=== PATIENT | female | born 1945 | race Caucasian/White ===

== ENCOUNTER 2016-12-26 07:37 | Outpatient (CLI) | payer MEDICARE ==
[2016-12-26 08:22] LABS: ALT (SGPT) 19 U/L (8-55); AST (SGOT) 25 U/L (5-34); Albumin 3.8 g/dL (3.4-4.8); Alkaline Phosphatase 74 U/L (40-150); Anion Gap 12 mmol/L (10-20); BUN (Urea Nitrogen) 17 mg/dL (9.8-20.1); Bilirubin, Direct 0.3 mg/dL (0.1-0.3); Bilirubin, Total 0.7 mg/dL (0.2-1.2); Calc. Creatinine Clearance 0 mL/min (70-130); Calcium 9.3 mg/dL (7.8-10.44); Carbon Dioxide 26 mmol/L (23-31); Cardiac Risk 2.2 (Less than 4.5); Chloride 106 mmol/L (98-107); Cholesterol 165 mg/dl (< 200 Desired); Estimated GFR-MDRD 67; Glucose 98 mg/dL (80-115); HDL Cholesterol 75 mg/dL (>60 Neg Risk); LDL Cholesterol, Calculated 74 mg/dL; Potassium 4.3 mmol/L (3.5-5.1); Protein, Total 6.7 g/dL (6.0-8.3); Sodium 140 mmol/L (136-145); Triglycerides 82 mg/dL (Less than 150)
[2016-12-26 08:52] LABS: #Basophils 0.1 thou/uL (0.0-0.2); #Eosinphils 0.2 thou/uL (0.0-0.7); #Lymphocytes 1.9 thou/uL (1.20-3.40); #Monocytes 0.5 thou/uL (0.11-0.59); #Neutrophils 1.8 thou/uL (1.40-6.50); %Basophils 2.3 % (0.0-1.0); %Eosinophils 5.4 % (0.0-10.0); %Lymphocytes 41.6 % (21.0-51.0); %Monocytes 11.1 % (0.0-10.0); %Neutrophils 39.6 % (42.0-75.0); Hemoglobin 12.5 g/dL (12.0-16.0); Mean Corpuscular HGB CONC 32.5 g/dL (32.0-36.0); Mean Corpuscular Hemoglobin 31.6 pg (27.0-31.0); Mean Corpuscular Volume 97.1 fl (81.0-99.0); Mean Platelet Volume 6.8 fL (7.4-10.4); Platelet Count 256 thou/uL (130-400); RBC Distribution Width 11.6 % (11.5-14.5); Red Blood Cell (RBC) Count 3.97 mill/uL (4.20-5.40); White Blood Cell (WBC) Count 4.5 thou/uL (4.8-10.8)
== END 2016-12-26 07:38 | disposition home or self-care (01) ==
LOC: MADLABBHPM 07:37
PROVIDERS: ATTEND Family Medicine
DX: I10 Essential (primary) hypertension (principal); M17.9 Osteoarthritis of knee, unspecified
CPT/HCPCS: 36415; 80048; 80061; 80076; 84443; 85025

== ENCOUNTER 2019-01-31 16:18 | Inpatient (IN) | payer MEDICARE ==
[2019-01-31 19:56] VITALS: BMI 31.5
[2019-01-31] MEDS ORDERED: Ferrous Gluconate 324 MG TAB PO SCH (21:00)
[2019-01-31] MEDS ORDERED: Guaifenesin DM 100-10/5 ML UDCUP PO PRN (21:06)
[2019-01-31] MEDS ORDERED: HYDROcodone/Acetaminophen 5/325 mg Tablet PO PRN (21:07)
[2019-01-31] MEDS: Aspirin 81 mg Enteric Coated Tablet PO SCH (21:25)
[2019-01-31] MEDS: Loratadine 10 MG TAB PO SCH (21:25)
[2019-01-31] MEDS: Floranex Packet PO SCH (21:25)
[2019-01-31] MEDS: Simvastatin 20 MG TAB PO SCH (21:25)
[2019-01-31] MEDS: HYDROcodone/Acetaminophen 5/325 mg Tablet PO PRN (21:26)
[2019-02-01 05:27] LABS: Eosinophils 7 % (0-10); Hemoglobin 10.9 g/dL (12.0-16.0); Lymphocytes 14 % (21-51); MDiff Complete? YES; Mean Corpuscular HGB CONC 33.6 g/dL (32.0-36.0); Mean Corpuscular Hemoglobin 31.4 pg (27.0-31.0); Mean Corpuscular Volume 93.5 fL (78.0-98.0); Mean Platelet Volume 5.3 fL (7.4-10.4); Monocytes 7 % (0-10); Neutrophil 70 % (42-75); Platelet Count 292 thou/uL (130-400); Platelet Morphology Comment Appears Adequate; RBC Distribution Width 12.4 % (11.5-14.5); RBC Morphology Normal; Reactive Lymphocytes 2 % (0-10); Red Blood Cell (RBC) Count 3.45 mill/uL (4.20-5.40); White Blood Cell (WBC) Count 9.6 thou/uL (4.8-10.8)
[2019-02-01 05:29] LABS: Potassium 5.1 mmol/L (3.5-5.1); Sodium 137 mmol/L (136-145)
[2019-02-01 05:30] LABS: Anion Gap 12 mmol/L (10-20); BUN (Urea Nitrogen) 18 mg/dL (9.8-20.1); Calc. Creatinine Clearance 93 mL/min (70-130); Calcium 8.9 mg/dL (7.8-10.44); Carbon Dioxide 27 mmol/L (23-31); Chloride 103 mmol/L (98-107); Estimated GFR-MDRD 72; Glucose 103 mg/dL (83-110)
[2019-02-01] MEDS: Multivitamin W/ Minerals 1 TAB PO SCH (08:09)
[2019-02-01] MEDS: HYDROcodone/Acetaminophen 5/325 mg Tablet PO PRN ×3 (08:09→21:17)
[2019-02-01] MEDS: Ferrous Gluconate 324 MG TAB PO SCH ×2 (08:10→17:01)
[2019-02-01] MEDS: Famotidine 20 MG TAB PO SCH (08:10)
[2019-02-01] MEDS: Ubidecarenone 50 MG CAP PO SCH (08:10)
[2019-02-01] MEDS: Aspirin 81 mg Enteric Coated Tablet PO SCH ×2 (08:10→21:17)
[2019-02-01] MEDS: Oxybutynin 5 MG TAB PO SCH (08:10)
[2019-02-01] MEDS ORDERED: Acetaminophen 325 MG TAB PO PRN (10:39)
[2019-02-01] MEDS: Nystatin 500,000 UNITS/5 ML UDCUP PO SCH ×3 (13:56→21:17)
[2019-02-01] MEDS ORDERED: Fluconazole 100 MG TAB PO SCH (14:00)
[2019-02-01] MEDS: Floranex Packet PO SCH (21:17)
[2019-02-01] MEDS: Loratadine 10 MG TAB PO SCH (21:17)
[2019-02-01] MEDS: Simvastatin 20 MG TAB PO SCH (21:17)
[2019-02-02] MEDS: HYDROcodone/Acetaminophen 5/325 mg Tablet PO PRN ×5 (04:21→23:10)
[2019-02-02] MEDS: Famotidine 20 MG TAB PO SCH (08:44)
[2019-02-02] MEDS: Lisinopril 10 MG TAB PO SCH (08:44)
[2019-02-02] MEDS: Ubidecarenone 50 MG CAP PO SCH (08:44)
[2019-02-02] MEDS: Multivitamin W/ Minerals 1 TAB PO SCH (08:48)
[2019-02-02] MEDS: Oxybutynin 5 MG TAB PO SCH (08:48)
[2019-02-02] MEDS: Ferrous Gluconate 324 MG TAB PO SCH ×2 (08:48→17:00)
[2019-02-02] MEDS: Aspirin 81 mg Enteric Coated Tablet PO SCH ×2 (08:48→20:41)
[2019-02-02] MEDS: Fluconazole 100 MG TAB PO SCH (08:49)
[2019-02-02] MEDS: Nystatin 500,000 UNITS/5 ML UDCUP PO SCH ×4 (08:49→20:41)
[2019-02-02] MEDS ORDERED: Bisacodyl 10 MG SUPP PR PRN (09:16)
[2019-02-02] MEDS ORDERED: Enoxaparin Sodium 40 MG/0.4 ML SYRINGE SC SCH (09:30)
[2019-02-02] MEDS ORDERED: Polyethylene Glycol 3350 17 GM Packet PO SCH (09:30)
[2019-02-02] MEDS: Polyethylene Glycol 3350 17 GM Packet PO SCH (09:33)
[2019-02-02] MEDS: Floranex Packet PO SCH (20:41)
[2019-02-02] MEDS: Simvastatin 20 MG TAB PO SCH (20:41)
[2019-02-02] MEDS: Loratadine 10 MG TAB PO SCH (20:41)
[2019-02-03] MEDS: HYDROcodone/Acetaminophen 5/325 mg Tablet PO PRN ×3 (07:16→22:11)
--- NOTE | 2019-02-03 07:24 | HP ---
CHIEF COMPLAINT: Weakness following right hip replacements. HISTORY OF PRESENT ILLNESS: The patient is a 74-year-old white female, who has a history of hypertension, gastroesophageal reflux disease, hypercholesterolemia, diverticulosis. The patient has very severe arthritis of the right hip that was symptomatic. She was hospitalized at [facility] from 01/28/2019 to 01/31/2019 for the end-stage bicompartmental osteoarthritis of the right hip. She underwent a right total hip arthroplasty. She also was found to have a spontaneous rupture of the abductor muscle, which was repaired. This was all done on 01/28/2019. Her postop course was unremarkable, but she was weak and was having difficulty with any transfers, and consequently, was transferred to [facility] for continued physical therapy. The patient was seen early on the morning of 02/01/2019. She said that she was doing all right. Her pain was well managed. Most pain came with movement and ambulation was better. She is having a lot of trouble with transfers. When she is on her feet, she does pretty well. She was here for physical therapy. PAST MEDICAL HISTORY: Hospitalized at [facility] 01/28/2019 to [id number] for severe osteoarthritis of the right hip end-stage and spontaneous rupture of the right abductor muscle for which she underwent a right total hip arthroplasty and repair of the abductor muscle by Dr. Que Andrade on 01/28/2019. Postop course unremarkable. The patient has hypertension, gastroesophageal reflux disease, hypercholesterolemia, diverticulosis, urge and stress incontinence; liver abscess in 2007, treated with 6 weeks of IV antibiotics and then 2 months of oral antibiotics with complete resolution; osteoarthritis, irritable bowel syndrome. The patient has had a cholecystectomy in 1999, colonoscopy and EGD with findings of a hiatal hernia. Colonoscopy showed evidence of diverticulosis. This was in October of 2013. Hiatal hernia repair in March 2014. Benign mass removed from the left breast in 1999. The patient had a colonoscopy in 2003, which showed diverticulosis again in April [address] Munguia. PRESENT MEDICATIONS: 1. Zyrtec 10 mg at bedtime. 2. Aspirin 81 mg daily. 3. CoQ10 100 mg b.i.d. 4. Zantac 150 mg daily. 5. Lisinopril 10 mg daily, which is being held due to decrease in her blood pressure. 6. Hydrocodone-acetaminophen 5/325 one or two every 4 hours as needed for pain. 7. Ibuprofen 600 mg every 6 hours as needed for pain. 8. Theragran-M one tablet daily. 9. Loratadine 10 mg at bedtime. 10. Oxybutynin 5 mg daily. 11. Simvastatin 20 mg at bedtime. ALLERGIES: BACTRIM, NEXIUM. REVIEW OF SYSTEMS: GENERAL: The patient said she has not had any fever. She does not think her weight is changed. HEAD AND NECK: The patient said she yesterday spit up just a little blood, but none today. She has also had a little nasal congestion, a little greenish drainage, but her chest has been clear. 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 PULMONARY: The patient denies any shortness of breath. CARDIOVASCULAR: No chest pain. GI: No nausea or vomiting. Her bowels are moving fine. : No complaints. MUSCULOSKELETAL: Pain in the right hip with movement, but better. NEUROPSYCHIATRIC: No complaint. ADLs: Prior to hospitalization, the patient was independent of her ADLs and instrumental ADLs. HABITS: Alcohol, none. Tobacco, none. SOCIAL HISTORY: The patient , lives at home with her . CODE STATUS: Full code. PHYSICAL EXAMINATION: GENERAL: Shows very pleasant 74-year-old white female, who is sitting up in her geriatric chair. She is alert, talkative, and appears very comfortable, and in no distress. VITAL SIGNS: Her temp is 97.5 pulse 77, respirations 18, O2 saturation 98%, and blood pressure 138/65. HEENT: Head, normocephalic and atraumatic. Ears; TMs are blocked by cerumen. Eyes; pupils equal, round, and reactive. Sclerae nonicteric. Nose, there is a little bit of blood along the septum in the left nostril. There is no active bleeding. Mouth and throat, the tongue is red and coated with a white material and some on the sidewalls has a typical appearance of thrush. NECK: Carotids are equal and strong. No bruits. Thyroid not enlarged. LUNGS: Clear. HEART: Regular rate. No murmurs. ABDOMEN: Soft with no organomegaly. No areas of tenderness. EXTREMITIES: Right hip, the patient has a dressing over the incision. EXTREMITIES: The nurse who changed that last night said that the incision is closed with the Dermabond. The dressing is dry. There is no surrounding redness. Lower extremities show no edema. The patient's legs are sensitive to the touch, which is chronic for her. NEUROLOGIC: The patient is alert and oriented x3, and has weakness in that right Leg from the hip replacement. Otherwise, there is no focal weakness. LABORATORY DATA: H and H 10.9 and 32.3, white cell count 9600 with 70% segs, 14 % lymphocytes, platelet count is 292,000. Sodium 137, potassium 5.1, BUN 18, creatinine 0.78, GFR 72, glucose 103. IMPRESSION: 1. Generalized weakness and gait abnormality. a . Secondary to right hip replacement on 01/28/2019. 2. 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 a. Status post right total hip replacement and primary repair of the abductor tendon muscle by Dr. Que Andrade on 01/28/2019. b. B. Doing very well as of 02/01/2019. 3. Hypertension. a. A. Initially blood pressure was low postoperatively, but blood pressure now back in the normal range. 4. Status post hospitalization at [facility] from 01/28 to 01/31 for the end-stage arthritis of the right hip and chronic rupture of the abductor muscle for which she underwent right hip replacement and repair of the abductor tendon muscle. 5. Oral candidiasis. 6. Hypercholesterolemia. 7. Anemia. a. A. Secondary to recent surgery. Hemoglobin on 02/01, 10.9. 8. Urge incontinence. 9. Diverticulosis. PLAN: The patient has been admitted to [facility] for extended care for physical therapy in an effort to improve her general strength, deconditioning, and gait in an effort to improve her general functional capability. The patient will be kept on her usual medication. We will restart her lisinopril, now that her pressure is getting back to normal. Physical Therapy and OT will work with her. She is on sequential compression devices and aspirin for DVT prophylaxis. Code status, full code. Job ID: [id number] MTDD
[2019-02-03] MEDS: Famotidine 20 MG TAB PO SCH (08:31)
[2019-02-03] MEDS: Ferrous Gluconate 324 MG TAB PO SCH ×2 (08:31→17:51)
[2019-02-03] MEDS: Aspirin 81 mg Enteric Coated Tablet PO SCH ×2 (08:31→20:23)
[2019-02-03] MEDS: Enoxaparin Sodium 40 MG/0.4 ML SYRINGE SC SCH (08:31)
[2019-02-03] MEDS: Ubidecarenone 50 MG CAP PO SCH (08:32)
[2019-02-03] MEDS: Fluconazole 100 MG TAB PO SCH (08:32)
[2019-02-03] MEDS: Oxybutynin 5 MG TAB PO SCH (08:32)
[2019-02-03] MEDS: Nystatin 500,000 UNITS/5 ML UDCUP PO SCH ×4 (08:32→20:23)
[2019-02-03] MEDS: Lisinopril 10 MG TAB PO SCH (08:32)
[2019-02-03] MEDS: Multivitamin W/ Minerals 1 TAB PO SCH (08:32)
[2019-02-03] MEDS: Polyethylene Glycol 3350 17 GM Packet PO SCH (08:33)
--- NOTE | 2019-02-03 08:49 | PRG ---
DATE OF SERVICE: 02/03/2019 SUBJECTIVE: The patient said she is feeling pretty good today, just having some soreness in her hip. The patient said that she was not able to tolerate the SCDs, these were stopped, and the patient was placed on Lovenox for her DVT prophylaxis. She said she is tolerating very well. The patient said her mouth feels better. OBJECTIVE: GENERAL: The patient is sitting up in a Kina chair. She is alert, appears comfortable, and in no distress. VITAL SIGNS: Her temp is 96.9, pulse 79, respirations 16, O2 saturation 99% on room air, blood pressure 163/74. HEENT: Her mouth, the white debris over the tongue and buccal mucosa has markedly improved with just minimal amount on the lateral sides of the tongue. The redness is much less, overall looks much improved. LUNGS: Clear. HEART: Regular rate. EXTREMITIES: There is some bruising on the lower legs from the STDs. There is no swelling. ASSESSMENT: 1. Generalized weakness and gait abnormality. a. Secondary to right hip replacement on 01/28/2019. b. Improved as of 02/03/2019. 2. 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 a. Status post right total hip replacement and primary repair of the abductor tendon muscle by Dr. Que Andrade on 01/28/2019. b Doing very well as of 02/03/2019. 3. Hypertension. a. Initially blood pressure was low postoperatively, but blood pressure now back in the normal range. b. BP has increased requiring re-initiation of her lisinopril. 4. Status post hospitalization at [facility] from 01/28 to 01/31 for the end-stage arthritis of the right hip and chronic rupture of the abductor muscle for which she underwent right hip replacement and repair of the abductor tendon muscle. 5. Oral candidiasis. a. improved as of 02/03. 6. Hypercholesterolemia. 7. Anemia. a. Secondary to recent surgery. Hemoglobin on , 10.9 8. Urge incontinence. 9. Diverticulosis. PLAN: Continue present care. Continue PT and OT. Job ID: [id number] MTDD
[2019-02-03] MEDS ORDERED: HYDROcodone/Acetaminophen 5/325 mg Tablet PO PRN (14:15)
[2019-02-03] MEDS: Loratadine 10 MG TAB PO SCH (20:23)
[2019-02-03] MEDS: Simvastatin 20 MG TAB PO SCH (20:23)
[2019-02-03] MEDS: Floranex Packet PO SCH (20:23)
[2019-02-04] MEDS: HYDROcodone/Acetaminophen 5/325 mg Tablet PO PRN (06:24)
[2019-02-04] MEDS: Ubidecarenone 50 MG CAP PO SCH (09:05)
[2019-02-04] MEDS: Polyethylene Glycol 3350 17 GM Packet PO SCH (09:05)
[2019-02-04] MEDS: Enoxaparin Sodium 40 MG/0.4 ML SYRINGE SC SCH (09:05)
[2019-02-04] MEDS: Fluconazole 100 MG TAB PO SCH (09:06)
[2019-02-04] MEDS: Ferrous Gluconate 324 MG TAB PO SCH ×2 (09:06→17:05)
[2019-02-04] MEDS: Famotidine 20 MG TAB PO SCH (09:06)
[2019-02-04] MEDS: Aspirin 81 mg Enteric Coated Tablet PO SCH ×2 (09:06→21:14)
[2019-02-04] MEDS: Oxybutynin 5 MG TAB PO SCH (09:06)
[2019-02-04] MEDS: Multivitamin W/ Minerals 1 TAB PO SCH (09:06)
[2019-02-04] MEDS: Nystatin 500,000 UNITS/5 ML UDCUP PO SCH ×4 (09:07→21:14)
[2019-02-04] MEDS: Lisinopril 10 MG TAB PO SCH (09:07)
--- NOTE | 2019-02-04 10:04 | PRG ---
DATE OF SERVICE: 02/04/2019 SUBJECTIVE: The patient said she is doing a little better, still just weak and is able to walk some with a walker and assistance, but still could not get up out of bed on her own. She said she has developed a little bit of cold sore on her lips. Her mouth overall feels better. OBJECTIVE: GENERAL: The patient is sitting up in a wheelchair in Physical Therapy. She is alert, appears in no distress. VITAL SIGNS: Her temp is 97.2, pulse 82, respirations 18, O2 saturation 100% on room air, blood pressure 123/60. HEENT: Her mouth, the white debris on the tongue is resolving, the redness is fading. She has some dryness of her lips. LUNGS: Clear. HEART: Regular rate. EXTREMITIES: No edema. ASSESSMENT: 1. Generalized weakness and gait abnormality. a. Secondary to right hip replacement on 01/28/2019. b. Improved as of 02/04/2019 2. 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 a. Status post right total hip replacement and primary repair of the abductor tendon muscle by Dr. Que Andrade on 01/28/2019. b. Doing very well as of 02/04/2019. 3. Hypertension. a. Controlled as of 02/04/2019. 4. Status post hospitalization at [facility] from 01/28 to 01/31 for the end-stage arthritis of the right hip and chronic rupture of the abductor muscle for which she underwent right hip replacement and repair of the abductor tendon muscle. 5. Oral candidiasis. a. Improved as of 02/04/2019. 6. Hypercholesterolemia. 7. Anemia. a. Secondary to recent surgery. Hemoglobin on , 10.9 8. Urge incontinence. 9. Diverticulosis. PLAN: Continue present care. Continue PT/OT. We will order a lip balm for her to use as needed. Job ID: [id number] MTDD
[2019-02-04] MEDS: Ibuprofen 600 MG TAB PO PRN ×2 (12:13→21:14)
[2019-02-04] MEDS: Loratadine 10 MG TAB PO SCH (21:14)
[2019-02-04] MEDS: Floranex Packet PO SCH (21:14)
[2019-02-04] MEDS: Simvastatin 20 MG TAB PO SCH (21:14)
[2019-02-05] MEDS: HYDROcodone/Acetaminophen 5/325 mg Tablet PO PRN (04:55)
[2019-02-05] MEDS: Ferrous Gluconate 324 MG TAB PO SCH ×2 (08:01→17:06)
--- NOTE | 2019-02-05 08:39 | PRG ---
DATE OF SERVICE: 02/05/2019 SUBJECTIVE: The patient says she is doing pretty good this morning. Yesterday , she tried to go for longer periods without her pain medicine and ended up eventually having to take two of the pain pills. She eventually got comfortable. This morning, she is up, having breakfast and will then go on with her therapy. Overall, she thinks she is doing a little better. OBJECTIVE: GENERAL: The patient is sitting up in a chair, alert, talkative, appears comfortable, and in no distress. VITAL SIGNS: Temperature 97.3, pulse 82, respirations 18, O2 saturation 98% on room air, and blood pressure 129/58. HEENT: Mouth, the redness has resolved. The whitish debris is resolved. LUNGS: Clear. HEART: Regular rate. EXTREMITIES: Still little bruising on the lower extremities. There is no edema. ASSESSMENT: 1. Generalized weakness and gait abnormality. a. Secondary to right hip replacement on 01/28/2019. b. Improved as of 02/05/2019 2. 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 a. Status post right total hip replacement and primary repair of the abductor tendon muscle by Dr. Que Andrade on 01/28/2019. b. Doing very well as of 02/05/2019. 3. Hypertension. a. Controlled as of 02/04/2019. 4. Status post hospitalization at [facility] from 01/28 to 01/31 for the end-stage arthritis of the right hip and chronic rupture of the abductor muscle for which she underwent right hip replacement and repair of the abductor tendon muscle. 5. Oral candidiasis. a. Resolving as of 02/05/2019. 6. Hypercholesterolemia. 7. Anemia. a. Secondary to recent surgery. Hemoglobin on , 10.9 8. Urge incontinence. 9. Diverticulosis. PLAN: Continue present care. Continue PT/OT. Job ID: [id number] MTDD
[2019-02-05] MEDS: Oxybutynin 5 MG TAB PO SCH (09:01)
[2019-02-05] MEDS: Nystatin 500,000 UNITS/5 ML UDCUP PO SCH ×4 (09:01→21:57)
[2019-02-05] MEDS: Multivitamin W/ Minerals 1 TAB PO SCH (09:01)
[2019-02-05] MEDS: Aspirin 81 mg Enteric Coated Tablet PO SCH ×2 (09:02→21:56)
[2019-02-05] MEDS: Famotidine 20 MG TAB PO SCH (09:02)
[2019-02-05] MEDS: Lisinopril 10 MG TAB PO SCH (09:02)
[2019-02-05] MEDS: Ubidecarenone 50 MG CAP PO SCH (09:02)
[2019-02-05] MEDS: Enoxaparin Sodium 40 MG/0.4 ML SYRINGE SC SCH (09:02)
[2019-02-05] MEDS: Fluconazole 100 MG TAB PO SCH (09:03)
[2019-02-05] MEDS: Polyethylene Glycol 3350 17 GM Packet PO SCH (09:03)
[2019-02-05] MEDS: Ibuprofen 600 MG TAB PO PRN (13:19)
[2019-02-05] MEDS: Simvastatin 20 MG TAB PO SCH (21:56)
[2019-02-05] MEDS: Floranex Packet PO SCH (21:56)
[2019-02-05] MEDS: Loratadine 10 MG TAB PO SCH (21:57)
[2019-02-06] MEDS: HYDROcodone/Acetaminophen 5/325 mg Tablet PO PRN ×2 (03:07→22:11)
[2019-02-06] MEDS: Ferrous Gluconate 324 MG TAB PO SCH ×2 (08:31→17:21)
[2019-02-06] MEDS: Ibuprofen 600 MG TAB PO PRN ×2 (08:31→17:26)
[2019-02-06] MEDS: Famotidine 20 MG TAB PO SCH (08:32)
[2019-02-06] MEDS: Lisinopril 10 MG TAB PO SCH (08:32)
[2019-02-06] MEDS: Enoxaparin Sodium 40 MG/0.4 ML SYRINGE SC SCH (08:32)
[2019-02-06] MEDS: Nystatin 500,000 UNITS/5 ML UDCUP PO SCH ×4 (08:32→22:10)
[2019-02-06] MEDS: Aspirin 81 mg Enteric Coated Tablet PO SCH ×2 (08:32→22:11)
[2019-02-06] MEDS: Multivitamin W/ Minerals 1 TAB PO SCH (08:32)
[2019-02-06] MEDS: Oxybutynin 5 MG TAB PO SCH (08:32)
[2019-02-06] MEDS: Ubidecarenone 50 MG CAP PO SCH (08:32)
[2019-02-06] MEDS: Polyethylene Glycol 3350 17 GM Packet PO SCH (08:33)
[2019-02-06] MEDS: Senokot S 8.6-50 MG TAB PO SCH ×2 (08:45→22:12)
--- NOTE | 2019-02-06 10:43 | PRG ---
DATE OF SERVICE: 02/06/2019 SUBJECTIVE: The patient said she is making some progress with her PT, but just has been uncomfortable, is not resting good at night. Has been reluctant to take her pain medicine, because it constipates her, so she is taking the MiraLAX. OBJECTIVE: GENERAL: The patient is standing, walking with the use of a walker, looks a little uncomfortable, but not in any acute distress. VITAL SIGNS: Shows a temperature of 96.6, pulse 75, respirations 18, O2 saturation 100%, and blood pressure 133/60. LUNGS: Clear. HEART: Regular rate. EXTREMITIES: No edema. ASSESSMENT: 1. Generalized weakness and gait abnormality. a. Secondary to right hip replacement on 01/28/2019. b. Improved as of 02/06/2019 2. 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 a. Status post right total hip replacement and primary repair of the abductor tendon muscle by Dr. Que Andrade on 01/28/2019. b. Improving, but still having some pain and reluctant to take pain medicine due to constipation as of 02/06/2019. 3. Hypertension. a. Controlled as of 02/06/2019. 4. Status post hospitalization at [facility] from 01/28 to 01/31 for the end-stage arthritis of the right hip and chronic rupture of the abductor muscle for which she underwent right hip replacement and repair of the abductor tendon muscle. 5. Oral candidiasis. a. Resolving as of 02/05/2019. 6. Hypercholesterolemia. 7. Anemia. a. Secondary to recent surgery. Hemoglobin on , 10.9 8. Urge incontinence. 9. Diverticulosis. 10. Constipation. a. Secondary to pain medication. PLAN: 1. Continue the MiraLAX. We will add Senokot-S 2 b.i.d. 2. Encourage patient to use her pain medicine, particularly at night when she seems to have more trouble. 3. Continue PT/OT. Job ID: [id number] MTDD
[2019-02-06] MEDS: Floranex Packet PO SCH (22:08)
[2019-02-06] MEDS: Simvastatin 20 MG TAB PO SCH (22:11)
[2019-02-06] MEDS: Loratadine 10 MG TAB PO SCH (22:11)
[2019-02-07] MEDS: Oxybutynin 5 MG TAB PO SCH (08:22)
[2019-02-07] MEDS: Senokot S 8.6-50 MG TAB PO SCH ×2 (08:22→21:55)
[2019-02-07] MEDS: Ubidecarenone 50 MG CAP PO SCH (08:22)
[2019-02-07] MEDS: Enoxaparin Sodium 40 MG/0.4 ML SYRINGE SC SCH (08:22)
[2019-02-07] MEDS: Nystatin 500,000 UNITS/5 ML UDCUP PO SCH ×4 (08:22→21:55)
[2019-02-07] MEDS: Aspirin 81 mg Enteric Coated Tablet PO SCH ×2 (08:22→21:55)
[2019-02-07] MEDS: Famotidine 20 MG TAB PO SCH (08:23)
[2019-02-07] MEDS: Lisinopril 10 MG TAB PO SCH (08:23)
[2019-02-07] MEDS: Multivitamin W/ Minerals 1 TAB PO SCH (08:23)
[2019-02-07] MEDS: Ferrous Gluconate 324 MG TAB PO SCH ×2 (08:23→17:39)
[2019-02-07] MEDS: Polyethylene Glycol 3350 17 GM Packet PO SCH (08:24)
--- NOTE | 2019-02-07 11:05 | PRG ---
DATE OF SERVICE: 02/07/2019 SUBJECTIVE: The patient said she feels better today. She had a better night's rest. She took 2 pain pills last night and this really made the difference. She has already been working with therapy this morning. She said her bowels are moving some, but she does not think she has yet cleaned out. OBJECTIVE: GENERAL: The patient is sitting up in a geriatric chair. She looks better, looks more comfortable. VITAL SIGNS: Her temp is 97.3, pulse 84, respirations 18, O2 saturation 99% on room air, blood pressure is 151/63. LUNGS: Clear. HEART: Regular rate. Incision along the right hip is healing well. There is no redness, no drainage. EXTREMITIES: Lower extremities have no edema. ASSESSMENT: 1. Generalized weakness and gait abnormality. a. Secondary to right hip replacement on 02/07/2019. b. Improved as of 02/06/2019 2. 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 a. Status post right total hip replacement and primary repair of the abductor tendon muscle by Dr. Que Andrade on 01/28/2019. b. Improving. Wound healing well. Strength improving as of 02/07/2019. 3. Hypertension. a. Controlled as of 02/07/2019. 4. Status post hospitalization at [facility] from 01/28 to 01/31 for the end-stage arthritis of the right hip and chronic rupture of the abductor muscle for which she underwent right hip replacement and repair of the abductor tendon muscle. 5. Oral candidiasis. a. Resolving as of 02/05/2019. 6. Hypercholesterolemia. 7. Anemia. a. Secondary to recent surgery. Hemoglobin on , 10.9 8. Urge incontinence. 9. Diverticulosis. 10. Constipation. a. Secondary to pain medication. b. Improved as of 02/07/2019. PLAN: Continue present care. Continue PT. The patient is still having some trouble transferring from the bed to an upright position and worried whether or not she will be able to safely accomplish this at home. Therapy will work with this task. Job ID: [id number] [facility]
[2019-02-07] MEDS: Ibuprofen 600 MG TAB PO PRN ×2 (11:18→21:54)
[2019-02-07] MEDS ORDERED: Ondansetron ODT 4 MG TAB PO PRN (19:55)
[2019-02-07] MEDS: Loratadine 10 MG TAB PO SCH (21:55)
[2019-02-07] MEDS: Simvastatin 20 MG TAB PO SCH (21:55)
[2019-02-07] MEDS: Floranex Packet PO SCH (21:55)
[2019-02-08 07:46] VITALS: TEMP 97
[2019-02-08] MEDS: Polyethylene Glycol 3350 17 GM Packet PO SCH (08:36)
[2019-02-08] MEDS: Enoxaparin Sodium 40 MG/0.4 ML SYRINGE SC SCH (08:37)
[2019-02-08] MEDS: Nystatin 500,000 UNITS/5 ML UDCUP PO SCH (08:37)
[2019-02-08] MEDS: Multivitamin W/ Minerals 1 TAB PO SCH (08:38)
[2019-02-08] MEDS: Lisinopril 10 MG TAB PO SCH (08:38)
[2019-02-08] MEDS: Senokot S 8.6-50 MG TAB PO SCH (08:38)
[2019-02-08] MEDS: Oxybutynin 5 MG TAB PO SCH (08:38)
[2019-02-08] MEDS: Aspirin 81 mg Enteric Coated Tablet PO SCH (08:38)
[2019-02-08] MEDS: Famotidine 20 MG TAB PO SCH (08:38)
[2019-02-08] MEDS: Ferrous Gluconate 324 MG TAB PO SCH (08:38)
[2019-02-08] MEDS: Ubidecarenone 50 MG CAP PO SCH (08:38)
[2019-02-08 08:39] VITALS: BP 151/63
== END 2019-02-08 10:30 | disposition home or self-care (01) | DRG 560 ==
LOC: MADMS 19:54
PROVIDERS: ADMIT Family Medicine; ATTEND Family Medicine
DX: Z47.1 Aftercare following joint replacement surgery (principal); B37.0 Candidal stomatitis; I10 Essential (primary) hypertension; K21.9 Gastro-esophageal reflux disease without esophagitis; E78.00 Pure hypercholesterolemia, unspecified; K58.9 Irritable bowel syndrome, unspecified; R26.9 Unspecified abnormalities of gait and mobility; D64.9 Anemia, unspecified; N39.41 Urge incontinence; K57.90 Diverticulosis of intestine, part unspecified, without perforation or abscess without bleeding; R53.1 Weakness; K59.00 Constipation, unspecified; Z90.49 Acquired absence of other specified parts of digestive tract; Z79.82 Long term (current) use of aspirin; Z88.1 Allergy status to other antibiotic agents
CPT/HCPCS: 36415; 80048; 85007; 85027; J1650

== ENCOUNTER 2019-11-27 08:48 | Outpatient (CLI) | payer MEDICARE ==
[2019-11-27] MEDS ORDERED: Iopamidol 370 76% 100 ML VIAL ONE (09:58)
--- NOTE | 2019-11-27 11:54 | CT ---
CT CHEST WITH IV CONTRAST: INDICATION: Dysphagia. History of myasthenia gravis. FINDINGS: The lung quick are clear. There is no infiltrate. No evidence of effusion. No pulmonary mass or n odule. There is mild bullous change in the right upper lobe. A single bulla in this region measures 2.5 cm. The mediastinum is unremarkable. No adenopathy. The pulmonary arteries are well opacified and there is no evidence of proximal pulmonary embolus. There is no evidence of thoracic aortic dissection or aneurysm. The esophagus appears unremarkable by CT. Images through the upper abdomen unremarkable. Osseous structures unremarkable. The axilla is unrem arkable. Thyroid unremarkable. IMPRESSION: Unremarkable CT chest. POS: AGW
== END 2019-11-27 08:49 | disposition home or self-care (01) ==
LOC: MADCT 08:48
PROVIDERS: ATTEND Psychiatry & Neurology Neurology
DX: R13.10 Dysphagia, unspecified (principal)
CPT/HCPCS: 36415; 71260; 82565; Q9967

== ENCOUNTER 2020-07-12 15:00 | Emergency (ER) | payer MEDICARE ==
[~2020-07-12 15:00] MED LIST: Sodium Chloride 0.9% 1,000 ML BAG ONE
[2020-07-12 16:04] LABS: #Basophils 0.1 thou/uL (0.0-0.2); #Lymphocytes 0.7 thou/uL (1.20-3.40); #Monocytes 0.3 thou/uL (0.11-0.59); #Neutrophils 6.7 thou/uL (1.40-6.50); %Basophils 0.7 % (0.0-1.0); %Lymphocytes 9.2 % (21.0-51.0); Hemoglobin 13.4 g/dL (12.0-16.0); Mean Corpuscular HGB CONC 32.2 g/dL (32.0-36.0); Mean Corpuscular Hemoglobin 30.1 pg (27.0-31.0); Mean Corpuscular Volume 93.6 fL (78.0-98.0); Mean Platelet Volume 5.7 fL (7.4-10.4); Platelet Count 299 thou/uL (130-400); RBC Distribution Width 12.7 % (11.5-14.5); Red Blood Cell (RBC) Count 4.44 mill/uL (4.20-5.40); White Blood Cell (WBC) Count 7.8 thou/uL (4.8-10.8)
[2020-07-12 16:18] LABS: Bilirubin Small (Negative); Blood, Urine Negative (Negative); Clarity Clear (Clear); Glucose, Urine (Dipstick) Negative (Negative); Ketone, Urine 80 mg/dL (Negative); Leukocyte Negative (Negative); Nitrite Negative (Negative); Protein, Urine (Dipstick) Negative (Neg-Trace); pH, Urine 5.5 (5.0-9.0)
[2020-07-12 16:19] LABS: ALT (SGPT) 27 U/L (8-55); AST (SGOT) 40 U/L (5-34); Albumin 4.1 g/dL (3.4-4.8); Alkaline Phosphatase 49 U/L (40-110); Anion Gap 24 mmol/L (10-20); BUN (Urea Nitrogen) 32 mg/dL (9.8-20.1); Bilirubin, Total 0.6 mg/dL (0.2-1.2); CK (CPK) 142 U/L (29-168); Calc. Creatinine Clearance 0 mL/min (70-130); Calcium 9.6 mg/dL (7.8-10.44); Carbon Dioxide 17 mmol/L (23-31); Chloride 106 mmol/L (98-107); Globulin 2.9 g/dL (2.4-3.5); Glucose 123 mg/dL (83-110); Sodium 142 mmol/L (136-145)
[2020-07-12 16:27] LABS: Specific Gravity, Urine 1.025 (1.002-1.036)
[2020-07-12] MEDS ORDERED: methylPREDNISolone Sod Succ/PF 125 MG/2 ML VIAL ONE (17:06)
== END 2020-07-12 17:06 | disposition home or self-care (01) ==
LOC: MADERS 15:00
DX: E86.0 Dehydration (principal); G70.01 Myasthenia gravis with (acute) exacerbation; K21.9 Gastro-esophageal reflux disease without esophagitis; I10 Essential (primary) hypertension; E66.9 Obesity, unspecified; Z79.82 Long term (current) use of aspirin; Z79.899 Other long term (current) drug therapy
CPT/HCPCS: 80053; 81003; 82550; 84443; 85025; 96374; J2930; J7050

== ENCOUNTER 2021-02-01 13:53 | Outpatient (CLI) | payer MEDICARE ==
[2021-02-01 14:06] LABS: Bilirubin Negative (Negative); Blood, Urine Negative (Negative); Clarity Clear (Clear); Glucose, Urine (Dipstick) Negative (Negative); Ketone, Urine Trace mg/dL (Negative); Leukocyte Moderate (Negative); Nitrite Negative (Negative); Protein, Urine (Dipstick) Negative (Neg-Trace); RBC/HPF 0-3 HPF (0-3); Urobilinogen 0.2 mg/dL (Less than 2); pH, Urine 6.5 (5.0-9.0)
[2021-02-01 14:07] LABS: Bacteria/HPF 1+ HPF (None Seen); Squamous Epithelial 0-3 HPF (0-3)
== END 2021-02-01 13:54 | disposition home or self-care (01) ==
LOC: MADLAB 13:53
PROVIDERS: ATTEND Family Medicine
DX: R35.0 Frequency of micturition (principal)
CPT/HCPCS: 81001; 87077; 87086; 87186

== ENCOUNTER 2021-02-18 09:47 | Outpatient (CLI) | payer MEDICARE | END 2021-02-18 09:48 | disposition home or self-care (01) | LOC: MADLAB 09:47 | PROVIDERS: ATTEND Family Medicine | DX: M54.5 Low back pain (principal); M47.816 Spondylosis without myelopathy or radiculopathy, lumbar region; M43.8X4 Other specified deforming dorsopathies, thoracic region | CPT/HCPCS: 72070; 72100 ==

== ENCOUNTER 2021-08-12 07:57 | Outpatient (CLI) | payer MEDICARE ==
[2021-08-12 08:17] LABS: #Basophils 0.1 thou/uL (0.0-0.2); #Eosinphils 0.1 thou/uL (0.0-0.7); #Lymphocytes 2.6 thou/uL (1.20-3.40); #Monocytes 0.8 thou/uL (0.11-0.59); #Neutrophils 6.4 thou/uL (1.40-6.50); %Basophils 0.7 % (0.0-1.0); %Eosinophils 0.8 % (0.0-10.0); %Lymphocytes 26.3 % (21.0-51.0); %Monocytes 7.7 % (0.0-10.0); %Neutrophils 64.4 % (42.0-75.0); Hemoglobin 12.1 g/dL (12.0-16.0); Mean Corpuscular HGB CONC 30.5 g/dL (32.0-36.0); Mean Corpuscular Hemoglobin 26.7 pg (27.0-31.0); Mean Corpuscular Volume 87.6 fL (78.0-98.0); Mean Platelet Volume 5.1 fL (7.4-10.4); Platelet Count 375 thou/uL (130-400); RBC Distribution Width 15.1 % (11.5-14.5); Red Blood Cell (RBC) Count 4.54 mill/uL (4.20-5.40); White Blood Cell (WBC) Count 9.9 thou/uL (4.8-10.8)
[2021-08-12 08:28] LABS: ALT (SGPT) 38 U/L (8-55); AST (SGOT) 25 U/L (5-34)
== END 2021-08-12 07:58 | disposition home or self-care (01) ==
LOC: MADLAB 07:57
PROVIDERS: ATTEND Psychiatry & Neurology Neurology
DX: G70.01 Myasthenia gravis with (acute) exacerbation (principal)
CPT/HCPCS: 36415; 84450; 84460; 85025

== ENCOUNTER 2021-09-08 09:06 | Emergency (ER) | payer MEDICARE ==
[2021-09-08 10:27] LABS: #Basophils 0.1 thou/uL (0.0-0.2); #Eosinphils 0.1 thou/uL (0.0-0.7); #Lymphocytes 0.8 thou/uL (1.20-3.40); #Monocytes 0.4 thou/uL (0.11-0.59); #Neutrophils 11.1 thou/uL (1.40-6.50); %Basophils 0.7 % (0.0-1.0); %Eosinophils 0.5 % (0.0-10.0); %Lymphocytes 6.3 % (21.0-51.0); %Monocytes 3.1 % (0.0-10.0); %Neutrophils 89.4 % (42.0-75.0); Hemoglobin 11.8 g/dL (12.0-16.0); Mean Corpuscular Hemoglobin 28.7 pg (27.0-31.0); Mean Corpuscular Volume 92.5 fL (78.0-98.0); Mean Platelet Volume 4.9 fL (7.4-10.4); Platelet Count 355 thou/uL (130-400); RBC Distribution Width 16.5 % (11.5-14.5); Red Blood Cell (RBC) Count 4.11 mill/uL (4.20-5.40); White Blood Cell (WBC) Count 12.5 thou/uL (4.8-10.8)
[2021-09-08 10:33] LABS: Prothrombin Time 13.5 sec (12.0-14.7)
[2021-09-08 10:36] LABS: D-Dimer Test 1.66 *mcg/mL (0.27-0.43)
[2021-09-08 10:39] LABS: PTT 20.9 sec (22.9-36.1)
[2021-09-08 10:53] LABS: ALT (SGPT) 35 U/L (8-55); AST (SGOT) 34 U/L (5-34); Albumin 3.7 g/dL (3.4-4.8); Alkaline Phosphatase 46 U/L (40-110); Anion Gap 13 mmol/L (10-20); BUN (Urea Nitrogen) 27 mg/dL (9.8-20.1); Bilirubin, Total 0.4 mg/dL (0.2-1.2); Calc. Creatinine Clearance 0 mL/min (70-130); Calcium 9.4 mg/dL (7.8-10.44); Carbon Dioxide 27 mmol/L (23-31); Chloride 104 mmol/L (98-107); Globulin 2.6 g/dL (2.4-3.5); Glucose 102 mg/dL (83-110); Potassium 4.4 mmol/L (3.5-5.1); Protein, Total 6.3 g/dL (5.8-8.1); Sodium 140 mmol/L (136-145)
== END 2021-09-08 10:40 | disposition short-term general hospital (02) ==
LOC: MADERS 09:06
DX: M25.572 Pain in left ankle and joints of left foot (principal); R60.0 Localized edema; E78.00 Pure hypercholesterolemia, unspecified; K21.9 Gastro-esophageal reflux disease without esophagitis; I10 Essential (primary) hypertension; E66.9 Obesity, unspecified; Z79.52 Long term (current) use of systemic steroids; Z79.899 Other long term (current) drug therapy; Z79.82 Long term (current) use of aspirin
CPT/HCPCS: 36415; 80053; 85025; 85379; 85610; 85730

== ENCOUNTER 2021-12-09 07:20 | Outpatient (CLI) | payer MEDICARE ==
[2021-12-09 07:39] LABS: #Basophils 0.1 thou/uL (0.0-0.2); #Eosinphils 0.1 thou/uL (0.0-0.7); #Lymphocytes 2.1 thou/uL (1.20-3.40); #Monocytes 0.5 thou/uL (0.11-0.59); #Neutrophils 3.3 thou/uL (1.40-6.50); %Basophils 1.2 % (0.0-1.0); %Eosinophils 2.4 % (0.0-10.0); %Lymphocytes 34.3 % (21.0-51.0); %Monocytes 8.8 % (0.0-10.0); %Neutrophils 53.2 % (42.0-75.0); Hemoglobin 11.1 g/dL (12.0-16.0); Mean Corpuscular HGB CONC 30.6 g/dL (32.0-36.0); Mean Corpuscular Hemoglobin 29.6 pg (27.0-31.0); Mean Corpuscular Volume 96.5 fL (78.0-98.0); Mean Platelet Volume 6.3 fL (7.4-10.4); Platelet Count 331 thou/uL (130-400); RBC Distribution Width 15.3 % (11.5-14.5); Red Blood Cell (RBC) Count 3.76 mill/uL (4.20-5.40); White Blood Cell (WBC) Count 6.2 thou/uL (4.8-10.8)
[2021-12-09 07:51] LABS: ALT (SGPT) 29 U/L (8-55); AST (SGOT) 28 U/L (5-34)
== END 2021-12-09 07:21 | disposition home or self-care (01) ==
LOC: MADLAB 07:20
PROVIDERS: ATTEND Psychiatry & Neurology Neurology
DX: G70.01 Myasthenia gravis with (acute) exacerbation (principal)
CPT/HCPCS: 36415; 84450; 84460; 85025

== ENCOUNTER 2021-12-31 09:05 | Emergency (ER) | payer MEDICARE ==
[2021-12-31 09:55] LABS: #Basophils 0.1 thou/uL (0.0-0.2); #Monocytes 0.8 thou/uL (0.11-0.59); #Neutrophils 6.3 thou/uL (1.40-6.50); %Basophils 0.9 % (0.0-1.0); %Lymphocytes 12.1 % (21.0-51.0); %Monocytes 9.7 % (0.0-10.0); %Neutrophils 77.3 % (42.0-75.0); Hemoglobin 11.6 g/dL (12.0-16.0); Mean Corpuscular HGB CONC 32.3 g/dL (32.0-36.0); Mean Corpuscular Hemoglobin 29.6 pg (27.0-31.0); Mean Corpuscular Volume 91.9 fL (78.0-98.0); Mean Platelet Volume 6.6 fL (7.4-10.4); Platelet Count 273 thou/uL (130-400); RBC Distribution Width 14.2 % (11.5-14.5); White Blood Cell (WBC) Count 8.1 thou/uL (4.8-10.8)
[2021-12-31 09:57] LABS: Bilirubin Negative (Negative); Blood, Urine Small (Negative); Glucose, Urine (Dipstick) Negative (Negative); Ketone, Urine 15 mg/dL (Negative); Leukocyte Moderate (Negative); Nitrite Negative (Negative); Protein, Urine (Dipstick) 30 mg/dL (Neg-Trace); Specific Gravity, Urine 1.025 (1.005-1.030); pH, Urine 5.5 (5.0-9.0)
[2021-12-31 09:58] LABS: Clarity Cloudy (Clear)
[2021-12-31 10:05] LABS: Bacteria/HPF 4+ HPF (None Seen); RBC/HPF 0-3 HPF (0-3); Squamous Epithelial 0-3 HPF (0-3); WBC/HPF 21-50 HPF (0-3)
[2021-12-31 10:09] LABS: ALT (SGPT) 44 U/L (8-55); AST (SGOT) 57 U/L (5-34); Albumin 3.5 g/dL (3.4-4.8); Alkaline Phosphatase 61 U/L (40-110); Anion Gap 20 mmol/L (10-20); BUN (Urea Nitrogen) 24 mg/dL (9.8-20.1); Bilirubin, Total 0.5 mg/dL (0.2-1.2); Calc. Creatinine Clearance 0 mL/min (70-130); Carbon Dioxide 20 mmol/L (23-31); Chloride 102 mmol/L (98-107); Globulin 2.8 g/dL (2.4-3.5); Glucose 99 mg/dL (83-110); Potassium 4.4 mmol/L (3.5-5.1); Protein, Total 6.3 g/dL (5.8-8.1); Sodium 138 mmol/L (136-145)
[2021-12-31] MEDS ORDERED: cefTRIAXone\\ROCEPHIN 2 GM VIAL ONE (10:15)
[2021-12-31] MEDS ORDERED: Sodium Chloride 0.9% 100 ML ONE (10:15)
[2021-12-31] MEDS ORDERED: Sodium Chloride 0.9% 1,000 ML ONE (10:15)
== END 2021-12-31 12:20 | disposition home or self-care (01) ==
LOC: MADERS 09:05
DX: S20.211A Contusion of right front wall of thorax, initial encounter (principal); U07.1 COVID-19; N39.0 Urinary tract infection, site not specified; E78.00 Pure hypercholesterolemia, unspecified; K21.9 Gastro-esophageal reflux disease without esophagitis; I10 Essential (primary) hypertension; Z79.899 Other long term (current) drug therapy; W19.XXXA Unspecified fall, initial encounter
CPT/HCPCS: 36415; 80053; 81003; 81015; 83605; 85025; 87040; 87077; 87086; 87186; 87804; 93005; 94760; 96365; J0696; J3490; J7050; U0003; U0005

== ENCOUNTER 2022-01-06 08:30 | Emergency (ER) | payer MEDICARE ==
[2022-01-06] MEDS ORDERED: Sodium Chloride 0.9% 1,000 ML ONE (09:28)
[2022-01-06] MEDS ORDERED: Ondansetron PF 4 MG/2 ML Vial ONE (09:28)
[2022-01-06 09:30] LABS: #Lymphocytes 0.8 thou/uL (1.20-3.40); #Monocytes 0.3 thou/uL (0.11-0.59); #Neutrophils 8.7 thou/uL (1.40-6.50); %Basophils 0.4 % (0.0-1.0); %Eosinophils 0.2 % (0.0-10.0); %Lymphocytes 8.1 % (21.0-51.0); %Monocytes 2.5 % (0.0-10.0); %Neutrophils 88.8 % (42.0-75.0); Hemoglobin 11.9 g/dL (12.0-16.0); Mean Corpuscular HGB CONC 31.2 g/dL (32.0-36.0); Mean Corpuscular Hemoglobin 29.5 pg (27.0-31.0); Mean Corpuscular Volume 94.4 fL (78.0-98.0); Mean Platelet Volume 6.3 fL (7.4-10.4); Platelet Count 316 thou/uL (130-400); Red Blood Cell (RBC) Count 4.02 mill/uL (4.20-5.40); White Blood Cell (WBC) Count 9.8 thou/uL (4.8-10.8)
[2022-01-06 09:49] LABS: ALT (SGPT) 35 U/L (8-55); AST (SGOT) 55 U/L (5-34); Albumin 3.4 g/dL (3.4-4.8); Alkaline Phosphatase 78 U/L (40-110); Anion Gap 18 mmol/L (10-20); BUN (Urea Nitrogen) 20 mg/dL (9.8-20.1); Bilirubin, Total 0.6 mg/dL (0.2-1.2); CK (CPK) 30 U/L (29-168); Calc. Creatinine Clearance 0 mL/min (70-130); Calcium 9.1 mg/dL (7.8-10.44); Carbon Dioxide 20 mmol/L (23-31); Chloride 105 mmol/L (98-107); Globulin 2.9 g/dL (2.4-3.5); Glucose 117 mg/dL (83-110); Potassium 4.3 mmol/L (3.5-5.1); Protein, Total 6.3 g/dL (5.8-8.1); Sodium 139 mmol/L (136-145)
[2022-01-06] MEDS ORDERED: traMADol HCl 50 MG TAB ONE (09:59)
[2022-01-06] MEDS ORDERED: Acetaminophen 325 MG TAB ONE (09:59)
[2022-01-06 11:25] LABS: Bilirubin Negative (Negative); Blood, Urine Moderate (Negative); Clarity Slightly Cloudy (Clear); Glucose, Urine (Dipstick) Negative (Negative); Ketone, Urine 40 mg/dL (Negative); Leukocyte Large (Negative); Nitrite Negative (Negative); Protein, Urine (Dipstick) 30 mg/dL (Neg-Trace); Urobilinogen 0.2 mg/dL (Less than 2)
[2022-01-06 11:38] LABS: Bacteria/HPF 4+ HPF (None Seen); RBC/HPF Greater than 50 HPF (0-3); WBC/HPF Greater Than 50 HPF (0-3)
== END 2022-01-06 11:37 | disposition home or self-care (01) ==
LOC: MADERS 08:30
DX: U07.1 COVID-19 (principal); J12.82 Pneumonia due to coronavirus disease 2019; E86.0 Dehydration; S61.511A Laceration without foreign body of right wrist, initial encounter; S20.211A Contusion of right front wall of thorax, initial encounter; J20.8 Acute bronchitis due to other specified organisms; K21.9 Gastro-esophageal reflux disease without esophagitis; I10 Essential (primary) hypertension; Z79.899 Other long term (current) drug therapy; W19.XXXA Unspecified fall, initial encounter
CPT/HCPCS: 71045; 80053; 81003; 81015; 82550; 85025; 94760; J2405; J7050

== ENCOUNTER 2022-01-07 01:44 | Emergency (ER) | payer MEDICARE ==
[2022-01-07] MEDS ORDERED: Dextrose 5 % And 0.9 % NaCl 1,000 ML ONE (02:29)
[2022-01-07] MEDS ORDERED: Loperamide HCl 2 MG CAP ONE (02:29)
[2022-01-07] MEDS ORDERED: cefTRIAXone\\ROCEPHIN 2 GM VIAL ONE (02:29)
[2022-01-07] MEDS ORDERED: Acetaminophen 500 MG TAB ONE (02:29)
[2022-01-07] MEDS ORDERED: Ondansetron PF 4 MG/2 ML Vial ONE (02:29)
[2022-01-07] MEDS ORDERED: Sodium Chloride 0.9% 100 ML ONE (02:30)
[2022-01-07 03:10] LABS: #Lymphocytes 0.4 thou/uL (1.20-3.40); #Monocytes 0.2 thou/uL (0.11-0.59); #Neutrophils 9.6 thou/uL (1.40-6.50); %Basophils 0.1 % (0.0-1.0); %Eosinophils 0.1 % (0.0-10.0); %Monocytes 1.5 % (0.0-10.0); %Neutrophils 94.4 % (42.0-75.0); Hemoglobin 10.9 g/dL (12.0-16.0); Mean Corpuscular HGB CONC 31.5 g/dL (32.0-36.0); Mean Platelet Volume 6.1 fL (7.4-10.4); Platelet Count 268 thou/uL (130-400); RBC Distribution Width 14.6 % (11.5-14.5); Red Blood Cell (RBC) Count 3.74 mill/uL (4.20-5.40); White Blood Cell (WBC) Count 10.2 thou/uL (4.8-10.8)
[2022-01-07 03:27] LABS: ALT (SGPT) 33 U/L (8-55); AST (SGOT) 51 U/L (5-34); Albumin 3.1 g/dL (3.4-4.8); Alkaline Phosphatase 88 U/L (40-110); Anion Gap 16 mmol/L (10-20); BUN (Urea Nitrogen) 16 mg/dL (9.8-20.1); Bilirubin, Total 0.4 mg/dL (0.2-1.2); Calc. Creatinine Clearance 0 mL/min (70-130); Calcium 8.4 mg/dL (7.8-10.44); Carbon Dioxide 21 mmol/L (23-31); Chloride 103 mmol/L (98-107); Globulin 2.7 g/dL (2.4-3.5); Glucose 152 mg/dL (83-110); Potassium 4.5 mmol/L (3.5-5.1); Protein, Total 5.8 g/dL (5.8-8.1); Sodium 135 mmol/L (136-145)
== END 2022-01-07 07:35 | disposition home or self-care (01) ==
LOC: MADERS 01:44
DX: U07.1 COVID-19 (principal); J12.82 Pneumonia due to coronavirus disease 2019; J20.8 Acute bronchitis due to other specified organisms; R11.2 Nausea with vomiting, unspecified; E78.00 Pure hypercholesterolemia, unspecified; K21.9 Gastro-esophageal reflux disease without esophagitis; I10 Essential (primary) hypertension; Z79.899 Other long term (current) drug therapy
CPT/HCPCS: 71045; 80053; 81003; 81015; 82550; 83605; 85025; 94760; 96361; 96365; 96366; 96368; 96374; 96375; J0696; J2405; J3490; J7042; J7050

== ENCOUNTER 2022-04-11 07:50 | Outpatient (CLI) | payer MEDICARE ==
[2022-04-11 08:00] LABS: #Basophils 0.1 thou/uL (0.0-0.2); #Eosinphils 0.1 thou/uL (0.0-0.7); #Lymphocytes 1.7 thou/uL (1.20-3.40); #Monocytes 0.5 thou/uL (0.11-0.59); #Neutrophils 2.2 thou/uL (1.40-6.50); %Basophils 1.2 % (0.0-1.0); %Eosinophils 2.4 % (0.0-10.0); %Monocytes 11.5 % (0.0-10.0); Hemoglobin 10.8 g/dL (12.0-16.0); Mean Corpuscular HGB CONC 30.6 g/dL (32.0-36.0); Mean Corpuscular Hemoglobin 30.3 pg (27.0-31.0); Mean Platelet Volume 5.8 fL (7.4-10.4); Platelet Count 336 thou/uL (130-400); RBC Distribution Width 14.8 % (11.5-14.5); Red Blood Cell (RBC) Count 3.55 mill/uL (4.20-5.40); White Blood Cell (WBC) Count 4.5 thou/uL (4.8-10.8)
[2022-04-11 08:15] LABS: ALT (SGPT) 45 U/L (8-55); AST (SGOT) 47 U/L (5-34)
== END 2022-04-11 07:51 | disposition home or self-care (01) ==
LOC: MADLAB 07:50
PROVIDERS: ATTEND Psychiatry & Neurology Neurology
DX: G70.00 Myasthenia gravis without (acute) exacerbation (principal)
CPT/HCPCS: 36415; 84450; 84460; 85025

== ENCOUNTER 2024-03-19 08:28 | Emergency (ER) | payer MEDICARE | END 2024-03-19 10:36 | disposition home or self-care (01) | LOC: MADERS 08:28 | DX: U07.1 COVID-19 (principal) | CPT/HCPCS: 99283 ==

== ENCOUNTER 2025-04-21 07:54 | Outpatient (CLI) | payer MEDICARE ==
[2025-04-21 08:22] LABS: #Basophils 0.0 thou/uL (0.0-0.2); #Eosinophils 0.2 thou/uL (0.0-0.7); #Lymphocytes 1.1 thou/uL (1.20-3.40); #Monocytes 0.3 thou/uL (0.11-0.59); #Neutrophils 1.7 thou/uL (1.40-6.50); %Basophils 1.3 % (0.0-1.0); %Eosinophils 5.7 % (0.0-10.0); %Lymphocytes 32.0 % (21.0-51.0); %Monocytes 10.2 % (0.0-10.0); %Neutrophils 50.8 % (42.0-75.0); Hematocrit 36.8 % (36.0-47.0); Hemoglobin 12.0 g/dL (12.0-16.0); Mean Corpuscular Hemoglobin 35.5 pg (27.0-31.0); Mean Corpuscular Volume 109.2 fl (78.0-98.0); Platelet Count 245 10x3/uL (130-400); Red Blood Cell (RBC) Count 3.37 mill/uL (4.20-5.40); White Blood Cell (WBC) Count 3.3 10x3/uL (4.8-10.8)
[2025-04-21 08:27] LABS: ALT (SGPT) 37 U/L (Less than 34); AST (SGOT) 50 U/L (11-34)
[2025-04-21 08:34] LABS: Anisocytosis SLIGHT = 6-15 cells (100X) (0-5/hpf); Macrocytosis SLIGHT = 6-15 cells (100X) (0-5/hpf)
[2025-04-21 08:35] LABS: Platelet Adequacy Comment Appears Adequate
== END 2025-04-21 07:55 | disposition home or self-care (01) ==
LOC: MADLAB 07:54
PROVIDERS: ATTEND Psychiatry & Neurology Neurology
DX: G70.01 Myasthenia gravis with (acute) exacerbation (principal)
CPT/HCPCS: 36415; 84450; 84460; 85025